=== PATIENT | female | born 2000 | race Caucasian/White ===

== ENCOUNTER 2020-10-25 06:55 | Day surgery (SDC) | payer BC ==
[~2020-10-25] VITALS: Ht 162.6 cm; Wt 61.4 kg
[~2020-10-25 06:55] MED LIST: AMPH25CA4 PO
[2020-10-25] MEDS ORDERED: LACTATED RINGERS 1,000 ML IV SCH (07:30)
[2020-10-25] MEDS ORDERED: MULT-658 PO (07:33)
[2020-10-25 07:37] VITALS: BP 105/73
[2020-10-25] MEDS ORDERED: CHLORHEXIDINE 15 ML UDC ONE (07:40)
[2020-10-25 07:54] LABS: HCG UR SG 1.026 (1.003-1.030)
[2020-10-25] MEDS ORDERED: CHLORHEXIDINE 15 ML UDC MM ONE (08:00)
[2020-10-25] MEDS ORDERED: FENTANYL PF 100 MCG/2ML ONE ×2 (08:10→08:58)
[2020-10-25] MEDS ORDERED: MIDAZOLAM 1 MG/ML, 2ML ONE (08:10)
[2020-10-25] MEDS ORDERED: CEFAZOLIN 1,000 MG ONE (08:14)
[2020-10-25] MEDS ORDERED: GLYCOPYRROLATE 0.2MG/1ML, 5ML ONE (08:14)
[2020-10-25] MEDS ORDERED: ONDANSETRON 2MG/ML, 2ML ONE (08:14)
[2020-10-25] MEDS ORDERED: DEXAMETHASONE 4 MG/ML, 1ML ONE (08:14)
[2020-10-25] MEDS ORDERED: ROCURONIUM 10MG/ML,5ML ONE (08:14)
[2020-10-25] MEDS ORDERED: PROPOFOL 10 MG/ML, 20ML ONE (08:14)
[2020-10-25] MEDS ORDERED: SUCCINYLCHOLINE 20 MG/ML, 10ML ONE (08:14)
[2020-10-25] MEDS ORDERED: NEOSTIGMINE 1 MG/ML, 10ML ONE (08:14)
[2020-10-25] MEDS ORDERED: OXYcodone 5 MG/5 ML ORAL.SOL UDC ONE (08:59)
[2020-10-25] MEDS ORDERED: OXYcodone 5 MG/5 ML ORAL.SOL UDC PO PRN (09:00)
[2020-10-25] MEDS ORDERED: HYDROcodone/APAP 7.5-325MG/15ML UDC PO PRN (09:00)
[2020-10-25] MEDS ORDERED: PROMETHAZINE 25 MG/ML, 1ML IVPush PRN (09:00)
[2020-10-25] MEDS ORDERED: MEPERIDINE/PF 25MG/0.5ML IVPush PRN (09:00)
[2020-10-25] MEDS ORDERED: HYDROmorphone 1 MG/ML, 1ML INJ IVPush PRN (09:00)
[2020-10-25] MEDS ORDERED: FENTANYL PF 100 MCG/2ML IV PRN (09:00)
[2020-10-25] MEDS ORDERED: MEPERIDINE/PF 25MG/ML,1ML ONE (09:14)
== END 2020-10-25 11:15 | disposition home or self-care (01) ==
LOC: OUT 06:55
PROVIDERS: ATTEND Otolaryngology
DX: J03.01 Acute recurrent streptococcal tonsillitis (principal); J35.02 Chronic adenoiditis; F12.90 Cannabis use, unspecified, uncomplicated; F17.210 Nicotine dependence, cigarettes, uncomplicated; Z20.828 Contact with and (suspected) exposure to other viral communicable diseases; Z72.89 Other problems related to lifestyle; Z79.899 Other long term (current) drug therapy
CPT/HCPCS: 42826; 81025; 87635; 88304; J0330; J0690; J1100; J2175; J2250; J2405; J2704; J2710; J3010; J7120